=== PATIENT | female | born 1965 | race Hispanic/Latino ===

== ENCOUNTER 2016-06-24 12:35 | Inpatient (IN) | payer BC, OTHER ==
--- NOTE | 2016-06-24 13:43 | Emergency Department Report ---
Chief Complaint: Chest Pain Stated Complaint: HIGH BLOOD PRESSURE Time Seen by Provider: 06/24/16 13:39 - HPI History of Present Illness: 51 y/o female complain of chest pain ,headache and left shoulder with swelling in bilateral feet x 1 week.Heaviness in chest worsen this am.pt denies any prior medication .denies any injury. - ROS Review of Systems: per HPI - Exam Vital Signs: Vital Signs 06/24/16 13:00 Temperature 98.5 F Pulse Rate 105 H Respiratory 18 Rate Blood Pressure 197/123 O2 Sat by Pulse 96 Oximetry Physical Exam: GENERAL: The patient is well-developed and well-nourished. Patient is in NAD. HENT: Normocephalic. Atraumatic. Patient has moist mucous membranes. Throat: No erythema, swelling or exudates. EYES: Extraocular motions are intact, PERRL NECK: Supple. No meningitic signs are noted. There is no adenopathy noted. CHEST/LUNGS: Clear to auscultation bilaterally. No wheezing, rales or rhonchi noted. There is no respiratory distress noted. HEART/CARDIOVASCULAR: Regular rate and rhythm. Normal S1 S2. No murmurs, rubs , clicks, or gallops. ABDOMEN: Abdomen is soft, nontender.. Bowel sounds normoactive. There is no abdominal distention. Negative rebound tenderness. : Deferred. SKIN: There is no rash. edema noted to bilateral ankle . There is no diaphoresis. NEURO: The patient is A&Ox3. The patient has no focal neurologic deficits. MUSCULOSKELETAL: There is no tenderness or deformity. There is no limitation range of motion. PSYCH: Pt has appropriate mood and affect. MSE screening note: Focused history and physical exam performed. Due to findings the following was ordered: ED Disposition for MSE Condition: Stable
[2016-06-24 14:17] LABS: Basophils % (Auto) 0.7 % (0.0-1.8); Eosinophils % (Auto) 1.8 % (0.0-4.3); Hematocrit 41.7 % (30.3-42.9); Hemoglobin 14.6 gm/dl (10.1-14.3); Mean Corpuscular HGB Conc 35 % (30-34); Mean Corpuscular Hemoglobin 31 pg (28-32); Mean Corpuscular Volume 89 fl (79-97); Platelet Count 300 K/mm3 (140-440); Red Blood Count 4.71 M/mm3 (3.65-5.03); Red Cell Distribution Width 13.9 % (13.2-15.2); White Blood Count 12.6 K/mm3 (4.5-11.0)
[2016-06-24 14:30] LABS: Partial Thromboplastin Time 22.7 Sec. (24.2-36.6)
[2016-06-24 14:31] LABS: Blood Urea Nitrogen 9 mg/dL (7-17); Calcium 8.8 mg/dL (8.4-10.2); Carbon Dioxide 26 mmol/L (22-30); Creatine Kinase 54 units/L (30-135); Glucose 286 mg/dL (65-100); Potassium 4.7 mmol/L (3.6-5.0); Sodium 137 mmol/L (137-145)
[2016-06-24 14:36] LABS: Anion Gap 18 mmol/L
--- NOTE | 2016-06-24 14:46 | XRay Report ---
ROUTINE CHEST, TWO VIEWS: HISTORY: chest pain. The trachea, heart, mediastinal contour, lung gastelum and bony thorax are unremarkable. IMPRESSION: Unremarkable chest x-ray.
--- NOTE | 2016-06-24 15:42 | Emergency Department Report ---
HPI - General Chief Complaint: Chest Pain Time Seen by Provider: 06/24/16 15:20 - HPI HPI: This is a 51-year-old female who presents to the emergency department from home with complaint of a one-week history of body aches and a complaint of left-sided chest pain that began this morning. The chest pain is intermittent and dull. She denies any nausea, vomiting, shortness of breath. Patient does complain of some generalized swelling in her legs but that is more chronic issue. She presents with very elevated blood pressure. She does have a history of hypertension but cannot currently remember the names of her medications but says she does take them completely. Patient also has history of [id number]-[id number] diabetes and says she is compliant with her metformin but also has been having some high blood sugar lately. Her primary care doctor is Dr. Paulino in the office of Dr. Xiong. She is not taken anything for symptoms prior to presentation. No recent travel or sick contacts at home. She denies any history of NM, CVA, PE/DVT. ED Past Medical Hx - Past Medical History Hx Hypertension: Yes Hx Diabetes: Yes Additional medical history: high cholesterol - Surgical History Additional Surgical History: x2, hysterectomy, hernia repair - Social History Smoking Status: Never Smoker Substance Use Type: None - Medications Home Medications: Home Medications Medication Instructions Recorded Confirmed Last Taken Type Metoprolol [Lopressor TAB] 50 mg PO BID #60 tablet 05/19/14 Unknown Rx Pregabalin [Lyrica] 50 mg PO BID 05/19/14 05/19/14 05/19/14 History Valsartan [Diovan] 1 tab PO DAILY 05/19/14 05/19/14 05/17/14 History Valsartan [Diovan] 160 mg PO QDAY #60 tablet 05/19/14 Unknown Rx metFORMIN [Glucophage] 1,000 mg PO BID 05/19/14 05/19/14 05/17/14 History metFORMIN [Glucophage] 1,000 mg PO BID #60 tablet 05/19/14 Unknown Rx ED Review of Systems ROS: Stated complaint: HIGH BLOOD PRESSURE Other details as noted in HPI Comment: All other systems reviewed and negative Constitutional: denies: chills, fever Eyes: denies: eye pain, eye discharge, vision change ENT: denies: ear pain, throat pain Respiratory: denies: cough, shortness of breath, wheezing Cardiovascular: chest pain, edema. denies: palpitations Gastrointestinal: denies: abdominal pain, nausea, diarrhea Genitourinary: denies: urgency, dysuria, discharge Musculoskeletal: denies: back pain, joint swelling, arthralgia Skin: denies: rash, lesions Neurological: denies: headache, weakness, paresthesias Physical Exam - Physical Exam Vital Signs: Vital Signs 06/24/16 06/24/16 13:00 15:18 Temperature 98.5 F Pulse Rate 105 H Respiratory 18 18 Rate Blood Pressure 197/123 O2 Sat by Pulse 96 Oximetry Physical Exam: GENERAL: The patient is well-developed well-nourished. HEENT: Normocephalic. Atraumatic. Extraocular motions are intact. Patient has moist mucous membranes. Pupils equal reactive to light bilaterally. NECK: Supple. Trachea is midline. CHEST/LUNGS: Clear to auscultation. There is no respiratory distress noted. Chest pain is not reproducible to palpation of the chest wall. HEART/CARDIOVASCULAR: Regular. There is no tachycardia. There is no gallop rub or murmur. ABDOMEN: Abdomen is soft, nontender. Patient has normal bowel sounds. There is no abdominal distention. Obese habitus. SKIN: There is no rash. There is no edema. There is no diaphoresis. NEURO: The patient is awake, alert, and oriented. The patient is cooperative. The patient has no focal neurologic deficits. The patient has normal speech. MUSCULOSKELETAL: There is no tenderness or deformity. There is no limitation range of motion. There is no evidence of acute injury. ED Course Vital Signs 06/24/16 06/24/16 13:00 15:18 Temperature 98.5 F Pulse Rate 105 H Respiratory 18 18 Rate Blood Pressure 197/123 O2 Sat by Pulse 96 Oximetry ED Medical Decision Making - Lab Data Result diagrams: 06/24/16 14:01 06/24/16 14:01 - EKG Data -: EKG Interpreted by Me EKG shows normal: sinus rhythm, axis, intervals, QRS complexes (Q waves to the anterior leads), ST-T waves Rate: tachycardia (105 bpm) - EKG Data When compared to previous EKG there are: previous EKG unavailable Interpretation: other (sinus rhythm, Q waves to the anterior leads, tachycardia at 105 bpm) - Radiology Data Radiology results: image reviewed interpreted by me: Chest x-ray did not show any acute process. Heart is normal shape and size. No effusions. No pneumothorax. No signs of pneumonia seen. - Medical Decision Making 51-year-old female presents with 1 week of body aches, one day of left-sided chest pain, and very uncontrolled blood pressure. Patient's blood pressure reached a maximum of systolic to 12. She was given some labetalol and his come down to a more reasonable level. Breasts the patient's labs are mostly unremarkable except for some hyperglycemia. No DKA or HHNK. First troponin negative. EKG shows no ST elevation NM but some previous Q waves. Patient was given some pain medication and still complains of some discomfort. She had a negative d-dimer and therefore is low suspicion for pulmonary embolism. Patient has not had a stress test in 5-7 years. For all these reasons patient will be admitted to the hospital for further evaluation and treatment and has been accepted for admission by the hospitalist, Dr. Verdugo. - Differential Diagnosis NM, PE, CHF, hypertensive urgency, hypertensive crisis Critical Care Time: No Critical care attestation.: If time is entered above; I have spent that time in minutes in the direct care of this critically ill patient, excluding procedure time. ED Disposition Clinical Impression: Hypertensive urgency Uncontrolled diabetes mellitus Qualifiers: Diabetes mellitus type: other specified (including ELBA) Diabetes mellitus complication status: with hyperglycemia Diabetes mellitus liquefier insulin use : with liquefier use Qualified Code(s): E13.65 - Other specified diabetes mellitus with hyperglycemia; Z79.4 - urologic nurse (current) use of insulin Chest pain Qualifiers: Chest pain type: unspecified Qualified Code(s): R07.9 - Chest pain, unspecified Disposition: OP ADMITTED IP TO THIS HOSP Is pt being admited?: Yes Does the pt Need Aspirin: No Condition: Stable Instructions: Chest Pain (ED) Time of Disposition: 17:46
--- NOTE | 2016-06-24 16:15 | Admit Criteria Form ---
Admission Criteria Documentation: HYPERTENSION Clinical Indications for Admission to Inpatient Care ( Place "X" for any and all applicable criteria): Admission is indicated for ANY ONE of the following(1)(2)(3)(4): [ ]I. Hypertensive emergency, with evidence of acute and progressing target organ disease as indicated by ANY ONE of the following: [ ]a) Hypertensive encephalopathy (eg, confusion, altered mental status) [ ]b) Cerebral infarction [ ]c) Intracranial hemorrhage [ ]d) Myocardial ischemia or infarction [ ]e) Pulmonary edema [ ]f) Aortic dissection [ ]g) Seizure [ ]h) Acute renal insufficiency [ ]i) Papilledema [ ]j) Microangiopathic hemolytic anemia [ ]II. Adrenergic crisis (eg, severe hypertension due to pheochromocytoma crisis, cocaine or amphetamine intoxication, or clonidine withdrawal) [ X]III. Severe hypertension (SBP greater than 180 mmHg or DBP greater than 110 mmHg or greater than the 95th percentile for age, gender, and height in pediatric patients) that cannot be controlled (eg, to SBP less than 160 mmHg and DBP less than 100 mmHg in adults) by treatment with oral medication in emergency department or observation care Extended stay beyond goal length of stay may be needed for(11)(12)(13): [ ]a) Persistent hypertensive encephalopathy [ ]b) Continuation of pulmonary edema [ ]c) Recurring or persistent severe hypertension [ ]d) Target organ damage (eg, angina, stroke, aortic dissection) [ ]e) Associated renal insufficiency The original [employer] content created by [employer] has been revised. The portions of the content which have been revised are identified through the use of italic text or in bold, and [facility] has neither reviewed nor approved the modified material. All other unmodified content is copyright [facility]. Please see references footnoted in the original [facility] [facility] edition 2016 Admission Criteria Met: Yes
[2016-06-24] MEDS ORDERED: MORPHINE IV ONE (16:54)
[2016-06-24] MEDS ORDERED: BABY ASPIRIN PO ONE (16:54)
[2016-06-24] MEDS ORDERED: NORMODYNE IV ONE ×2 (16:54)
--- NOTE | 2016-06-24 20:15 | History and Physical Report ---
History of Present Illness Date of examination: 06/24/16 Date of admission: 06/24/16 18:02 Chief complaint: chest pain today History of present illness: Miss Rizvi is a 51 yo F who presented to the ER with pain which started this morning. She also had shortness of breath and palpitations. Her pain radiated down into the left arm to the level of the elbow. Was sticking in nature, on and off. At the time of evaluation she had no chest pain. Past History Past Medical History: diabetes, hypertension, hyperlipidemia Past Surgical History: , hernia repair, Other Social history: full code. denies: smoking, alcohol abuse, prescription drug abuse, IV drug use Family history: diabetes, hypertension Medications and Allergies Allergies Allergy/AdvReac Type Severity Reaction Status Date / Time No Known Allergies Allergy Unverified 05/19/14 15:13 Home Medications Medication Instructions Recorded Confirmed Last Taken Type Metoprolol [Lopressor TAB] 50 mg PO BID #60 tablet 05/19/14 Unknown Rx Pregabalin [Lyrica] 50 mg PO BID 05/19/14 05/19/14 05/19/14 History Valsartan [Diovan] 1 tab PO DAILY 05/19/14 05/19/14 05/17/14 History Valsartan [Diovan] 160 mg PO QDAY #60 tablet 05/19/14 Unknown Rx metFORMIN [Glucophage] 1,000 mg PO BID 05/19/14 05/19/14 05/17/14 History metFORMIN [Glucophage] 1,000 mg PO BID #60 tablet 05/19/14 Unknown Rx Review of Systems All systems: negative Constitutional: no weight loss, no weight gain, no fever, no chills, no sweats, no night sweats Ears, nose, mouth and throat: no ear pain, no ear discharge, no tinnitis, no decreased hearing, no nose pain Breasts: normal Cardiovascular: other (as in the [facility] ) Respiratory: no cough, no cough with sputum, no excessive sputum, no congestion , no wheezing Gastrointestinal: no abdominal pain, no nausea, no vomiting, no diarrhea, no constipation Genitourinary Female: no dysuria, no urinary frequency, no urgency Rectal: no pain, no incontinence Musculoskeletal: no neck stiffness, no neck pain, no shooting arm pain Integumentary: no rash, no pruritis, no redness, no sores Neurological: no head injury, no transient paralysis, no paralysis, no weakness Psychiatric: no anxiety, no memory loss, no change in sleep habits Endocrine: no cold intolerance, no heat intolerance, no polyphagia Hematologic/Lymphatic: no easy bruising, no easy bleeding Allergic/Immunologic: no urticaria, no allergic rhinitis Exam - Constitutional Vitals: Temp Pulse Resp BP Pulse Ox 98.5 F 98 H 18 216/112 100 06/24/16 13:00 06/24/16 17:15 06/24/16 17:14 06/24/16 17:15 06/24/16 15:54 General appearance: Present: no acute distress, well-nourished - EENT Eyes: Present: PERRL, EOM intact. Absent: scleral icterus, conjunctival injection ENT: hearing intact, clear oral mucosa, no oropharyngeal erythema, no poor dentition - Neck Neck: Present: supple, normal ROM. Absent: enlarged thyroid, masses or JVD - Respiratory Respiratory effort: normal, other (tender along LT costochondral margin) Respiratory: negative: diminished, rales, rhonchi, wheezing - Cardiovascular Rhythm: regular Heart Sounds: Present: S1 & S2. Absent: gallop - Extremities Extremities: no ischemia, pulses intact, pulses symmetrical, No edema Peripheral Pulses: within normal limits - Abdominal General gastrointestinal: Present: soft, non-tender, non-distended, normal bowel sounds Female genitourinary: Present: deferred - Rectal Rectal Exam: deferred - Integumentary Integumentary: Present: clear - Musculoskeletal Musculoskeletal: strength equal bilaterally, generalized weakness - Psychiatric Psychiatric: appropriate mood/affect, intact judgment & insight, cooperative - Neurologic Neurologic: CNII-XII intact, moves all extremities Results - Labs CBC & Chem 7: 06/24/16 14:01 06/24/16 14:01 - Imaging and Cardiology EKG: image reviewed ([facility] HR 101) Chest x-ray: report reviewed (unremarkable ) Assessment and Plan 1. Atypical chest pain to r/o ACS- will admit as an patient has more than 2 midnights are required for treatment. Serial cardiac enzymes and echocardiogram. We'll get stress test in the morning. Check lipid panel. Aspirin, IV morphine and nitroglycerin for pain 2. Diabetes type 2-monitor accuchecks; sliding scale insulin; consistent carb diet 3. Benign HTN- will restart home meds and adjust as needed 4. MIld leukocytosis- afebrile; check U/A 5. DVT prophylaxis- lovenox
[2016-06-24 20:28] LABS: Bilirubin,Urine NEG (Negative); Blood,Urine NEG (Negative); Ketones,Urine 20 mg/dL (Negative); Leukocyte Esterase,Urine NEG (Negative); Mucus,Urine 3+ /HPF; Nitrite,Urine NEG (Negative); Urobilinogen,Urine < 2.0 mg/dL (<2.0); WBC,Urine < 1.0 /HPF (0.0-6.0)
[2016-06-24] MEDS ORDERED: NITROSTAT SL PRN (22:26)
[2016-06-24] MEDS ORDERED: SODIUM CHLORIDE FLUSH SYRINGE 10 ML IV PRN (22:26)
[2016-06-24] MEDS ORDERED: MORPHINE IV PRN (22:26)
[2016-06-24] MEDS ORDERED: APRESOLINE IV PRN (22:26)
[2016-06-24] MEDS ORDERED: DILAUDID IV PRN (22:30)
[2016-06-24] MEDS ORDERED: ZOFRAN IV PRN (22:30)
[2016-06-24] MEDS: LOPRESSOR PO SCH (23:27)
[2016-06-24] MEDS: PEPCID PO SCH (23:28)
[2016-06-24] MEDS: LYRICA PO SCH (23:28)
[2016-06-24 23:34] LABS: Creatine Kinase MB 1.5 ng/mL (0.0-4.0)
[2016-06-24 23:36] LABS: Creatine Kinase 49 units/L (30-135)
[2016-06-25] MEDS: NOVOLOG SUB-Q SCH ×2 (00:16→13:10)
[2016-06-25 06:03] LABS: Creatine Kinase MB 1.5 ng/mL (0.0-4.0)
[2016-06-25] MEDS ORDERED: LEXISCAN IV ONE ×2 (09:05→09:09)
[2016-06-25] MEDS ORDERED: ECOTRIN PO SCH (10:00)
[2016-06-25] MEDS ORDERED: DIOVAN PO SCH (10:00)
--- NOTE | 2016-06-25 11:53 | Echocardiography Report ---
Transthoracic Echocardiogram BP: 155/84 Conclusions *The study quality is technically difficult. *The left ventricular chamber size is normal. *Mild concentric left ventricular hypertrophy is observed. *Global left ventricular systolic function is normal. *The estimated ejection fraction is 60-65%. *Abnormal left ventricular diastolic filling is observed, consistent with impaired relaxation. Findings Procedure Info: The study quality is technically difficult. Left Ventricle: The left ventricular chamber size is normal. Mild concentric left ventricular hypertrophy is observed. Global left ventricular systolic function is normal. The estimated ejection fraction is 60-65%. Abnormal left ventricular diastolic filling is observed, consistent with impaired relaxation. Left Atrium: The left atrial chamber size is normal. Right Ventricle: The right ventricular cavity size is normal. The right ventricular global systolic function is normal. Right Atrium: The right atrial cavity size is normal. Aortic Valve: The aortic valve is trileaflet. The leaflets are thin with normal excursion. There is no aortic stenosis or regurgitation present. Mitral Valve: The mitral valve appears normal in structure and function. Tricuspid Valve: The tricuspid valve appears normal in structure and function. Pulmonic Valve: The pulmonic valve appears normal in structure and function. Pericardium: There is no pericardial effusion. Aorta: The aorta appears normal. Venous: The inferior vena cava is not visualized. Measurements Chambers MM Name Value Normal Range Ao root diameter (MM) 3 cm (2 - 3.7) LA dimension (AP) MM 3.4 cm (1.9 - 4) LA:Ao ratio (MM) 1.13 ratio - AV cusp separation (MM) 2 cm (1.5 - 2.6) Chambers 2D Name Value Normal Range IVSd (2D) 1.2 cm (0.6 - 1.1) LVPWd (2D) 1.22 cm (0.6 - 1.1) IVS:LVPW ratio (2D) 0.98 ratio - LVIDd (2D) 3.88 cm (3.7 - 5.6) LVIDs (2D) 2.36 cm (2 - 3.8) LV FS (Teichholz) (2D) 39.2 % - LV FS (cube) (2D) 39.2 % - EF Teichholz (2D) 70.4 % - Ao root diameter (2D) 3 cm (2 - 3.7) LA dimension (AP) 2D 3.2 cm (1.9 - 4) LA:Ao ratio (2D) 1.07 ratio - Volumes/Mass Name Value Normal Range LA ESV SP 4CH (MOD) 34 ml - LV EDV SP 4CH (MOD) 107 ml - LV ESV SP 4CH (MOD) 59 ml - EF SP 4CH (MOD) 45 % - Diastolic/Systolic Function Name Value Normal Range MV E-wave Vmax 0.9 m/sec - MV deceleration time 134 msec - MV A-wave Vmax 1.08 m/sec - MV E:A ratio 0.8 ratio - LV septal e' Vmax 0.07 m/sec - LV lateral e' Vmax 0.08 m/sec - LV E:e' septal ratio 13.5 ratio - LV E:e' lateral ratio 10.7 ratio - Aortic Valve Name Value Normal Range AV Vmax 1.09 m/sec - AV peak gradient 5 mmHg - LVOT diameter 1.8 cm - LVOT Vmax 0.69 m/sec - LVOT peak gradient 2 mmHg - SINCERE (continuity Vmax) 1.61 cm2 - Pulmonic Valve/Qp:Qs Name Value Normal Range PV Vmax 0.73 m/sec - PV peak gradient 2 mmHg - PV acceleration time 67 msec -
[2016-06-25 12:22] VITALS: BP 164/82
--- NOTE | 2016-06-25 12:33 | Treadmill Report ---
INDICATION: Chest pain. FINDINGS: There is no scintigraphic evidence of myocardial ischemia. The left ventricle is normal in size and systolic function. The left ventricular ejection fraction is measured at 61%. Normal wall motion and wall thickening is noted on gated imaging. CONCLUSION: This is a normal perfusion scan. JOB# [id number] BEE/JANICE
[2016-06-25] MEDS: LOPRESSOR PO SCH (13:08)
[2016-06-25] MEDS: PEPCID PO SCH (13:08)
[2016-06-25] MEDS: LYRICA PO SCH (13:08)
== END 2016-06-25 14:05 | disposition home or self-care (01) | DRG 313 ==
LOC: ED 12:35 → 4A 18:02
PROVIDERS: ADMIT Hospitalist; ATTEND Internal Medicine
DX: R07.89 Other chest pain (principal); I16.0 Hypertensive urgency; E11.65 Type 2 diabetes mellitus with hyperglycemia; I10 Essential (primary) hypertension; E78.5 Hyperlipidemia, unspecified; Z83.3 Family history of diabetes mellitus; Z82.49 Family history of ischemic heart disease and other diseases of the circulatory system; D72.829 Elevated white blood cell count, unspecified; Z79.4 Long term (current) use of insulin; Z98.890 Other specified postprocedural states
CPT/HCPCS: 36415; 71020; 78452; 80048; 80061; 81001; 82550; 82553; 82962; 83880; 84484; 85025; 85379; 85610; 85730; 93005; 93010; 93017; 93306; 96372; 96374; 96375; A9502; J1815; J2270; J2785